=== PATIENT | male | born 1980 | race Caucasian/White ===

== ENCOUNTER 2022-12-19 21:30 | Inpatient (IN) | payer OTHER ==
[~2022-12-19] VITALS: Ht 182.9 cm; Wt 88.5 kg
[2022-12-19] MEDS ORDERED: IV NS 0.9% 1,000 ML BAG IV ONE (22:30)
[2022-12-19 23:43] LABS: WHITE BLOOD COUNT (AUTO) 12.6 K/uL (4.3-11.0)
[2022-12-19 23:51] LABS: ALANINE AMINOTRANSFERASE 506 U/L (12-78); ALBUMIN 2.9 g/dL (3.4-5.0); ALKALINE PHOSPHATASE 85 U/L (46-116); ASPARTATE AMINOTRANSFERASE 546 U/L (15-37); BILIRUBIN,DIRECT 0.5 mg/dL (0.0-0.2); BILIRUBIN,TOTAL 1.5 mg/dL (0.2-1.0); CALCIUM, SERUM 8.1 mg/dL (8.5-10.1); CARBON DIOXIDE 24 mmol/L (21-32); CHLORIDE 100 mmol/L (98-107); CREATININE 0.9 mg/dL (0.6-1.3); GLUCOSE 104 mg/dL (74-106); POTASSIUM 4.4 mmol/L (3.5-5.1); SODIUM SERUM 134 mmol/L (136-145); TOTAL PROTEIN, SERUM 6.4 g/dL (6.4-8.2); UREA NITROGEN, BLOOD 13 mg/dL (7-18)
[2022-12-19 23:57] LABS: BASOPHILS # (AUTO) 0.1 K/uL (0.0-0.2); BASOPHILS % (AUTO) 0.7 % (0.0-2.0); EOSINOPHILS # (AUTO) 0.2 K/uL (0.0-0.7); EOSINOPHILS % (AUTO) 1.9 % (0.0-6.0); HEMATOCRIT 39 % (39-51); LYMPHOCYTES # (AUTO) 1.7 K/uL (0.8-4.8); LYMPHOCYTES % (AUTO) 13.5 % (20.0-44.0); MEAN CORPUSCULAR HEMOGLOBIN 23 PG (26.0-33.0); MEAN CORPUSCULAR HGB CONC 31 g/dl (31.0-36.0); MEAN CORPUSCULAR VOLUME 75 fL (80-96); MONOCYTES # (AUTO) 0.7 K/uL (0.1-1.30); MONOCYTES % (AUTO) 5.2 % (2.0-12.0); NEUTROPHILS # (AUTO) 9.9 K/uL (1.8-8.9); NEUTROPHILS % (AUTO) 78.7 % (43.0-81.0); PLATELET COUNT (AUTO) 312 K/uL (150-450); RED BLOOD CELL COUNT(AUTO) 5.17 MIL/uL (4.5-6.0); RED CELL DISTRIBUTION WIDTH 17.1 % (11.5-15.0)
[2022-12-20 00:04] LABS: INR 1.42 (0.91-1.10); PROTHROMBIN TIME 14.7 SECS (9.2-11.1)
[2022-12-20 00:45] LABS: BARBITURATE, URINE NEGATIVE (NEGATIVE); BENZODIAZEPINE, URINE NEGATIVE (NEGATIVE); CANNABINOID, URINE NEGATIVE (NEGATIVE); COCCAINE, URINE NEGATIVE (NEGATIVE); PHENCYCLIDINE SCREEN,URINE NEGATIVE (NEGATIVE)
[2022-12-20] MEDS ORDERED: IOHEXOL-350 100 ML VIAL IV ONE (00:46)
[2022-12-20] MEDS ORDERED: IV NS 0.9% 250 ML IV ONE (00:46)
[2022-12-20] MEDS ORDERED: CT SWABBABLE VALVE TRANS SET 1 EA INFUS.SET MC ONE (00:46)
[2022-12-20 00:57] LABS: AMPHETAMINE, URINE POSITIVE (NEGATIVE); OPIATE, URINE POSITIVE (NEGATIVE)
[2022-12-20 01:08] LABS: EOSINOPHILS % (MANUAL) 2 % (0-4); LYMPHOCYTES % (MANUAL) 14 % (16-48); MONOCYTES % (MANUAL) 8 % (0-11.0); NEUTROPHILS % (MANUAL) 76 (42-76)
[2022-12-20 01:09] LABS: PLATELET ESTIMATE ADEQUATE
[2022-12-20] MEDS ORDERED: KETOROLAC TROMETHAMINE INJ 30 MG/ML VIAL ONE (01:43)
[2022-12-20] MEDS ORDERED: KETOROLAC TROMETHAMINE INJ 30 MG/ML VIAL IV ONE (02:00)
[2022-12-20] MEDS ORDERED: IV NS 0.9% 1,000 ML IV ONE ×2 (07:30→08:30)
[2022-12-20] MEDS ORDERED: MORPHINE SULFATE INJ 2 MG/ML DISP.SYRIN IV ONE (07:30)
[2022-12-20] MEDS ORDERED: VANCOMYCIN 1 GM in IV D5W 250 ML IV ONE (07:30)
[2022-12-20] MEDS ORDERED: CEFEPIME 1 GM in IV D5W 50 ML IV ONE ×2 (07:30→09:30)
[2022-12-20] MEDS ORDERED: MORPHINE SULFATE INJ 4 MG/ML DISP.SYRIN ONE (07:56)
[2022-12-20] MEDS ORDERED: IV NS 0.9% 500 ML BAG IV ONE (08:30)
[2022-12-20] MEDS ORDERED: CARV12.52 PO (08:46)
[2022-12-20] MEDS ORDERED: METF-442 PO (08:46)
[2022-12-20] MEDS ORDERED: DOXY100C2 PO (08:46)
[2022-12-20] MEDS ORDERED: ONDANSETRON HCL/PF 4 MG/2 ML VIAL IVP PRN (09:00)
[2022-12-20] MEDS ORDERED: DEXTROSE 50%-WATER 50 ML DISP.SYRIN IV PRN (09:00)
[2022-12-20] MEDS: IV NS 0.9% 1,000 ML IV SCH ×2 (09:00→22:21)
[2022-12-20] MEDS ORDERED: hydrALAZINE HCL IV 20 MG VIAL IV PRN (09:00)
[2022-12-20] MEDS ORDERED: ACETAMINOPHEN 325 MG TABLET PO PRN (09:00)
[2022-12-20 09:15] VITALS: O2SAT 99
[2022-12-20] MEDS ORDERED: IV NS 0.9% 1,000 ML BAG IV ONE (09:30)
[2022-12-20] MEDS: HEPARIN SODIUM, PORCINE 5000 UNITS/1 ML VIAL SQ SCH ×3 (10:57→21:09)
[2022-12-20] MEDS: BLOOD SUGAR DIAGNOSTIC 1 EACH STRIP IN SCH ×3 (12:08→22:00)
[2022-12-20] MEDS: METRONIDAZOLE 500 MG TABLET PO SCH ×2 (14:30→21:08)
[2022-12-20] MEDS: CEFTRIAXONE 2 G in IV D5W 100 ML IV SCH (14:53)
[2022-12-20 16:00] VITALS: BP 159/117; TEMP 98.6; O2SAT 98
[2022-12-20] MEDS: CARVEDILOL 12.5 MG TABLET PO SCH (17:00)
[2022-12-20] MEDS ORDERED: METRONIDAZOLE 500 MG TABLET PO SCH (18:00)
[2022-12-20] MEDS ORDERED: LABETALOL HCL IV 100MG VIAL IV ONE (18:30)
[2022-12-20] MEDS: MORPHINE SULFATE INJ 2 MG/ML DISP.SYRIN IV PRN (19:53)
[2022-12-20 20:00] VITALS: BP 115/92; TEMP 97.6; O2SAT 97
[2022-12-20] MEDS ORDERED: CEFEPIME 2 GM in IV D5W 100 ML IV SCH (21:00)
[2022-12-20] MEDS ORDERED: diphenhydrAMINE HCL 25 MG CAPSULE PO ONE (21:00)
[2022-12-20 23:10] LABS: HIV-1 p24 ANTIGEN NON REACTIVE (NONREACTIVE); HIV-1/2 ANTIBODY NON REACTIVE (NONREACTIVE)
[2022-12-21] MEDS: METRONIDAZOLE 500 MG TABLET PO SCH ×3 (05:53→21:53)
[2022-12-21 07:12] LABS: BASOPHILS # (AUTO) 0.1 K/uL (0.0-0.2); BASOPHILS % (AUTO) 0.4 % (0.0-2.0); EOSINOPHILS % (AUTO) 0.3 % (0.0-6.0); HEMATOCRIT 43 % (39-51); LYMPHOCYTES % (AUTO) 5.9 % (20.0-44.0); MEAN CORPUSCULAR HEMOGLOBIN 23 PG (26.0-33.0); MEAN CORPUSCULAR HGB CONC 31 g/dl (31.0-36.0); MEAN CORPUSCULAR VOLUME 76 fL (80-96); MONOCYTES # (AUTO) 1.1 K/uL (0.1-1.30); MONOCYTES % (AUTO) 6.5 % (2.0-12.0); NEUTROPHILS # (AUTO) 14.9 K/uL (1.8-8.9); NEUTROPHILS % (AUTO) 86.9 % (43.0-81.0); PLATELET COUNT (AUTO) 341 K/uL (150-450); RED BLOOD CELL COUNT(AUTO) 5.62 MIL/uL (4.5-6.0); RED CELL DISTRIBUTION WIDTH 17.9 % (11.5-15.0); WHITE BLOOD COUNT (AUTO) 17.2 K/uL (4.3-11.0)
[2022-12-21 07:30] VITALS: BP 150/106; TEMP 98.8; O2SAT 98
[2022-12-21 07:50] LABS: ALBUMIN 2.6 g/dL (3.4-5.0); CREATININE 1.1 mg/dL (0.6-1.3); MAGNESIUM 1.5 mg/dL (1.8-2.4); PHOSPHORUS 3.5 mg/dL (2.5-4.9); POTASSIUM 5.3 mmol/L (3.5-5.1)
[2022-12-21] MEDS: BLOOD SUGAR DIAGNOSTIC 1 EACH STRIP IN SCH ×4 (08:11→22:43)
[2022-12-21] MEDS: CARVEDILOL 12.5 MG TABLET PO SCH ×2 (09:07→17:44)
[2022-12-21] MEDS: HEPARIN SODIUM, PORCINE 5000 UNITS/1 ML VIAL SQ SCH ×2 (09:08→21:52)
[2022-12-21] MEDS ORDERED: SPIRONOLACTONE 25 MG TABLET PO SCH (10:00)
[2022-12-21] MEDS ORDERED: LISINOPRIL (10MG) 10 MG TABLET PO SCH (10:00)
[2022-12-21] MEDS: FUROSEMIDE 40 MG/4 ML VIAL IV SCH ×3 (11:42→18:18)
[2022-12-21] MEDS: diphenhydrAMINE HCL 50 MG/ML VIAL IV PRN (11:49)
[2022-12-21] MEDS ORDERED: MAGNESIUM OXIDE 400 MG TABLET PO ONE (12:00)
[2022-12-21] MEDS: INSULIN REGULAR, HUMAN 100 UNIT/ML 3 ML VIAL SQ PRN ×2 (12:21→22:45)
[2022-12-21] MEDS: DOXYCYCLINE HYCLATE (100 MG) 100 MG TABLET PO SCH ×2 (13:26→21:53)
[2022-12-21] MEDS: CEFTRIAXONE 2 G in IV D5W 100 ML IV SCH (13:26)
[2022-12-21 16:00] VITALS: BP 110/73; TEMP 98.1; O2SAT 99
[2022-12-21] MEDS: MORPHINE SULFATE INJ 2 MG/ML DISP.SYRIN IV PRN ×2 (18:53→22:59)
[2022-12-21 21:25] VITALS: BP 120/99; TEMP 99.5; O2SAT 96
[2022-12-22] MEDS: METRONIDAZOLE 500 MG TABLET PO SCH ×2 (05:04→12:10)
[2022-12-22] MEDS: MORPHINE SULFATE INJ 2 MG/ML DISP.SYRIN IV PRN ×2 (05:13→10:12)
[2022-12-22 05:57] LABS: BASOPHILS # (AUTO) 0.1 K/uL (0.0-0.2); BASOPHILS % (AUTO) 0.9 % (0.0-2.0); EOSINOPHILS # (AUTO) 0.8 K/uL (0.0-0.7); EOSINOPHILS % (AUTO) 5.9 % (0.0-6.0); HEMATOCRIT 40 % (39-51); HEMOGLOBIN 12.5 g/dL (13.5-17.5); LYMPHOCYTES # (AUTO) 2.1 K/uL (0.8-4.8); LYMPHOCYTES % (AUTO) 15.6 % (20.0-44.0); MEAN CORPUSCULAR HEMOGLOBIN 23 PG (26.0-33.0); MEAN CORPUSCULAR HGB CONC 31 g/dl (31.0-36.0); MEAN CORPUSCULAR VOLUME 75 fL (80-96); MONOCYTES # (AUTO) 0.5 K/uL (0.1-1.30); MONOCYTES % (AUTO) 3.8 % (2.0-12.0); NEUTROPHILS % (AUTO) 73.8 % (43.0-81.0); PLATELET COUNT (AUTO) 261 K/uL (150-450); RED BLOOD CELL COUNT(AUTO) 5.36 MIL/uL (4.5-6.0); RED CELL DISTRIBUTION WIDTH 17.3 % (11.5-15.0); WHITE BLOOD COUNT (AUTO) 13.5 K/uL (4.3-11.0)
[2022-12-22 06:14] LABS: ALBUMIN 2.1 g/dL (3.4-5.0); BILIRUBIN,TOTAL 1.2 mg/dL (0.2-1.0); CALCIUM, SERUM 6.8 mg/dL (8.5-10.1); CREATININE 1.1 mg/dL (0.6-1.3); MAGNESIUM 1.3 mg/dL (1.8-2.4); PHOSPHORUS 2.8 mg/dL (2.5-4.9); POTASSIUM 3.3 mmol/L (3.5-5.1); TOTAL PROTEIN, SERUM 5.2 g/dL (6.4-8.2)
[2022-12-22] MEDS: diphenhydrAMINE HCL 50 MG/ML VIAL IV PRN ×3 (06:25→22:06)
[2022-12-22] MEDS: BLOOD SUGAR DIAGNOSTIC 1 EACH STRIP IN SCH ×4 (06:33→22:06)
[2022-12-22] MEDS: INSULIN REGULAR, HUMAN 100 UNIT/ML 3 ML VIAL SQ PRN ×4 (06:34→22:18)
[2022-12-22 08:00] VITALS: BP 126/89; TEMP 99.1; O2SAT 96
[2022-12-22] MEDS: POTASSIUM CHLORIDE 20 MEQ TAB.PRT.SR PO SCH ×2 (08:13→08:48)
[2022-12-22] MEDS: SPIRONOLACTONE 25 MG TABLET PO SCH (08:48)
[2022-12-22] MEDS: HEPARIN SODIUM, PORCINE 5000 UNITS/1 ML VIAL SQ SCH ×2 (08:48→22:06)
[2022-12-22] MEDS: CARVEDILOL 12.5 MG TABLET PO SCH ×2 (08:48→17:46)
[2022-12-22] MEDS: VALSARTAN 40 MG TABLET PO SCH (08:49)
[2022-12-22] MEDS: DOXYCYCLINE HYCLATE (100 MG) 100 MG TABLET PO SCH (08:49)
[2022-12-22] MEDS ORDERED: LISINOPRIL (10MG) 10 MG TABLET PO SCH (09:00)
[2022-12-22] MEDS ORDERED: SPIRONOLACTONE 25 MG TABLET PO SCH (09:00)
[2022-12-22] MEDS ORDERED: MAGNESIUM OXIDE 400 MG TABLET PO ONE (10:30)
[2022-12-22] MEDS: diphenhydrAMINE HCL/ZINC ACET CREAM 28.3 GM TUBE TP PRN (12:11)
[2022-12-22 12:56] LABS: ALBUMIN 2.1 g/dL (3.4-5.0); BILIRUBIN,DIRECT 0.5 mg/dL (0.0-0.2); BILIRUBIN,TOTAL 1.1 mg/dL (0.2-1.0); TOTAL PROTEIN, SERUM 5.2 g/dL (6.4-8.2)
[2022-12-22 13:12] LABS: FIBRINOGEN ACTIVITY 297 Mg/dL (213-485); INR 2.07 (0.91-1.10); PARTIAL THROMBOPLASTIN TIME 31.2 SEC (24.3-34.3); PROTHROMBIN TIME 20.9 SECS (9.2-11.1)
[2022-12-22] MEDS: CEFTRIAXONE 2 G in IV D5W 100 ML IV SCH (13:22)
[2022-12-22 15:05] LABS: D-DIMER > 35.20 mg/L(FEU (0.17-0.50)
[2022-12-22] MEDS: DOXYCYCLINE 100 MG in IV D5W 100 ML IV SCH ×2 (15:33→21:55)
[2022-12-22 16:00] VITALS: BP 103/77; TEMP 98.4; O2SAT 98
[2022-12-22] MEDS ORDERED: ACETYLCYSTEINE IV 0 MG in IV D5W 200 ML IV SCH (18:00)
[2022-12-22] MEDS ORDERED: ACETYLCYSTEINE IV 12,000 MG in IV D5W 200 ML IV ONE (18:30)
[2022-12-22 18:51] LABS: ACETAMINOPHEN < 10 ug/ml (10-30)
[2022-12-22] MEDS ORDERED: D5W IV SCH ×2 (19:30→20:00)
[2022-12-22] MEDS ORDERED: ACETYLCYSTEINE IV SCH ×2 (19:30→20:00)
[2022-12-22 20:00] VITALS: BP 116/75; TEMP 98.2; O2SAT 98
[2022-12-23] MEDS: diphenhydrAMINE HCL/ZINC ACET CREAM 28.3 GM TUBE TP PRN ×2 (01:02→14:41)
[2022-12-23] MEDS ORDERED: TEMAZEPAM 7.5 MG CAPSULE PO ONE (03:00)
[2022-12-23 03:07] LABS: HEPATITIS B CORE AB, TOTAL Negative (Negative); HEPATITIS B SURFACE AB Non Reactive (.)
[2022-12-23 04:00] VITALS: BP 112/83; TEMP 98; O2SAT 100
[2022-12-23] MEDS: BLOOD SUGAR DIAGNOSTIC 1 EACH STRIP IN SCH ×2 (06:32→11:57)
[2022-12-23] MEDS: INSULIN REGULAR, HUMAN 100 UNIT/ML 3 ML VIAL SQ PRN ×2 (06:33→11:58)
[2022-12-23 07:07] LABS: CMV, IgM <30.0 AU/mL (0.0-29.9)
[2022-12-23 08:00] VITALS: BP 120/78; TEMP 98.6; O2SAT 98
[2022-12-23 09:08] LABS: CALCIUM, SERUM 7.1 mg/dL (8.5-10.1); CREATININE 0.9 mg/dL (0.6-1.3); POTASSIUM 3.6 mmol/L (3.5-5.1)
[2022-12-23 09:19] LABS: ALBUMIN 1.9 g/dL (3.4-5.0); BILIRUBIN,TOTAL 0.8 mg/dL (0.2-1.0); MAGNESIUM 1.5 mg/dL (1.8-2.4); TOTAL PROTEIN, SERUM 5.1 g/dL (6.4-8.2)
[2022-12-23 09:20] LABS: BASOPHILS # (AUTO) 0.1 K/uL (0.0-0.2); BASOPHILS % (AUTO) 1.1 % (0.0-2.0); EOSINOPHILS # (AUTO) 0.8 K/uL (0.0-0.7); EOSINOPHILS % (AUTO) 9.5 % (0.0-6.0); HEMATOCRIT 37 % (39-51); HEMOGLOBIN 11.8 g/dL (13.5-17.5); LYMPHOCYTES # (AUTO) 1.1 K/uL (0.8-4.8); LYMPHOCYTES % (AUTO) 12.8 % (20.0-44.0); MEAN CORPUSCULAR HEMOGLOBIN 24 PG (26.0-33.0); MEAN CORPUSCULAR HGB CONC 32 g/dl (31.0-36.0); MEAN CORPUSCULAR VOLUME 75 fL (80-96); MONOCYTES # (AUTO) 0.4 K/uL (0.1-1.30); MONOCYTES % (AUTO) 4.7 % (2.0-12.0); NEUTROPHILS # (AUTO) 6.2 K/uL (1.8-8.9); NEUTROPHILS % (AUTO) 71.9 % (43.0-81.0); PLATELET COUNT (AUTO) 228 K/uL (150-450); RED BLOOD CELL COUNT(AUTO) 4.95 MIL/uL (4.5-6.0); RED CELL DISTRIBUTION WIDTH 17.1 % (11.5-15.0); WHITE BLOOD COUNT (AUTO) 8.7 K/uL (4.3-11.0)
[2022-12-23 09:43] LABS: INR 1.63 (0.91-1.10); PARTIAL THROMBOPLASTIN TIME 27.9 SEC (24.3-34.3); PROTHROMBIN TIME 16.7 SECS (9.2-11.1)
[2022-12-23 09:53] LABS: D-DIMER 13.88 mg/L(FEU (0.17-0.50)
[2022-12-23] MEDS: SPIRONOLACTONE 25 MG TABLET PO SCH (10:01)
[2022-12-23] MEDS: VALSARTAN 40 MG TABLET PO SCH (10:02)
[2022-12-23] MEDS: CARVEDILOL 12.5 MG TABLET PO SCH (10:02)
[2022-12-23] MEDS: HEPARIN SODIUM, PORCINE 5000 UNITS/1 ML VIAL SQ SCH (10:03)
[2022-12-23] MEDS: DOXYCYCLINE 100 MG in IV D5W 100 ML IV SCH (10:17)
[2022-12-23 11:07] LABS: RAPID PLASMA REAGIN QUAL. Non Reactive (Non Reactive)
[2022-12-23 12:07] LABS: *EBV AB VCA, IgM <36.0 U/mL (0.0-35.9); *EBV NUCLEAR Ag AB, IgG 42.9 U/mL (0.0-17.9)
[2022-12-23] MEDS: diphenhydrAMINE HCL 50 MG/ML VIAL IV PRN (14:54)
[2022-12-23 16:00] VITALS: BP 111/86; TEMP 98.4; O2SAT 98
[2022-12-24 06:07] LABS: *HSV 1 DNA PCR Negative (Negative); *HSV 2 DNA PCR Negative (Negative)
== END 2022-12-23 16:37 | disposition left against medical advice (07) | DRG 720 ==
LOC: ER 21:36 → MED 12-20 08:58 → TELE 12-22 17:33
PROVIDERS: ADMIT Internal Medicine
DX: A41.9 Sepsis, unspecified organism (principal); K72.00 Acute and subacute hepatic failure without coma; E87.20 Acidosis, unspecified; K80.00 Calculus of gallbladder with acute cholecystitis without obstruction; E44.0 Moderate protein-calorie malnutrition; K71.9 Toxic liver disease, unspecified; E87.1 Hypo-osmolality and hyponatremia; E88.09 Other disorders of plasma-protein metabolism, not elsewhere classified; I50.9 Heart failure, unspecified; I11.0 Hypertensive heart disease with heart failure; I42.7 Cardiomyopathy due to drug and external agent; R65.20 Severe sepsis without septic shock; Z95.2 Presence of prosthetic heart valve; E11.9 Type 2 diabetes mellitus without complications; Z88.0 Allergy status to penicillin; R74.01 Elevation of levels of liver transaminase levels; E87.5 Hyperkalemia; E80.6 Other disorders of bilirubin metabolism; I25.5 Ischemic cardiomyopathy; F17.200 Nicotine dependence, unspecified, uncomplicated; I71.21 Aneurysm of the ascending aorta, without rupture; K76.0 Fatty (change of) liver, not elsewhere classified; Z91.199 Patient's noncompliance with other medical treatment and regimen due to unspecified reason; F19.10 Other psychoactive substance abuse, uncomplicated
CPT/HCPCS: 36415; 71045-TC; 74181-TC; 76700-TC; 76705-TC; 78226; 80048-TC; 80053-TC; 80076-TC; 82140-TC; 82550-TC; 82962-TC; 83605-TC; 83615-TC; 83735-TC; 83880; 84100-TC; 84484-TC; 85025-TC; 85378-TC; 85396; 85730-TC; 86225; 86235; 86592; 86593; 86644; 86645; 86664; 86704; 86706; 86803; 86850-TC; 87040-TC; 87086-TC; 87340; 87517; 87798; 87806; 93307-TC; 93976-TC; A4223; A6403; A9537; G0378; J0132; J0692; J0696; J1200; J1644; J1815; J1885; J1940; J2270; J2405; J3370; J3490; J7030; J7040; J7050; J7060; J7070; Q0163; Q9967